=== PATIENT | female | born 1975 | race Caucasian/White ===

== ENCOUNTER → 2017-03-18 | Outpatient (CLI) | payer OTHER ==
[~2017-03-18] MED LIST: CITA40TA4 PO; CYAN1DRO; ERGO1CAP35 PO; LORA-741 PO; MULT-506 PO; MULTI VIT PO
--- NOTE | 2017-03-22 08:00 | MAMMOGRAPHY REPORT ---
BILATERAL DIGITAL SCREENING MAMMOGRAM TOMOSYNTHESIS WITH CAD: 03/18/2017 CLINICAL HISTORY: Routine screening. Patient has no complaints. TECHNIQUE: Bilateral breast tomosynthesis in addition to standard 2D mammography was performed. Curre nt study was also evaluated with a Computer Aided Detection (CAD) system. COMPARISON: Comparison is made to exams dated: 06/07/2014 mammogram, 12/12/2013 localization, 4 stereotactic biopsy, 11/14/2013 mammogram, 10/31/2013 breast MRI, and 10/19/2013 mammogram - [facility]. BREAST COMPOSITION: There are scattered areas of fibroglandular density in both breasts. FINDINGS: There are nodular asymmetries in the far posterior left breast, along the posterior nipple line on the MLO view that are new comparing to prior outside mammograms. Additional spot compressio n. This is views and possibly ultrasound are recommended. There is evidence of prior surgery and prior biopsy in the right breast. No other suspicious mass, a rchitectural distortion or cluster of microcalcifications is seen. IMPRESSION: ACR BI-RADS CATEGORY 0: INCOMPLETE EVALUATION: NEED ADDITIONAL IMAGING EVALUATION The nodular asymmetries in the posterior left breast need additional evaluation. The patient will be called to schedule an appointment. Approximately 10% of breast cancers are not detected with mammography. A negative mammographic report should not delay biopsy if a clinically suggestive mass is present. July Duffy M.D. ay/:03/19/2017 16:01:31 Online Editor: Margaret COTTER(Loi)([place]), [facility] letter sent: Addl Imaging 0 BI-RADS Code: ACR BI-RADS Category 0: Incomplete Evaluation: Need Additional Imaging Evaluation
== END | disposition home or self-care (01) ==
LOC: C.MAMM 15:11
PROVIDERS: ATTEND Physician Assistant
DX: Z12.31 Encounter for screening mammogram for malignant neoplasm of breast (principal); N64.89 Other specified disorders of breast

== ENCOUNTER → 2017-03-29 | Outpatient (CLI) | payer OTHER ==
--- NOTE | 2017-03-29 14:05 | MAMMOGRAPHY REPORT ---
UNILATERAL LEFT DIGITAL DIAGNOSTIC MAMMOGRAM TOMOSYNTHESIS AND TARGETED LEFT ULTRASOUND: 03/29/2017 CLINICAL HISTORY: 42-year-old woman with a history of prior benign right breast surgery and biopsy wa s called back from screening mammography for nodular asymmetries in the posterior left breast, best s een on the MLO view. TECHNIQUE: Spot compression left CC and MLO 2-D and tomosynthesis images were obtained. COMPARISON: Comparison is made to exams dated: 03/18/2017 mammogram - [facility], 1 mammogram, 12/12/2013 localization, 11/14/2013 stereotactic biopsy, 11/14/2013 mammogram, and breast MRI - [facility]. BREAST COMPOSITION: There are scattered areas of fibroglandular density in the left breast. FINDINGS: The additional supplemental spot compression 2-D and tomosynthesis views of the left breast demonstrate effacement of the nodular asymmetries in the far posterior left breast, along the cam maker ior nipple line on the spot compression MLO view. No definite corresponding abnormality is seen on t he spot compression CC views in both the lateral and medial breast. On the tomosynthesis images, the re is no evidence of a persistent mass or focal area of architectural distortion. Further evaluation with ultrasound was performed. Targeted ultrasound was performed throughout the left breast 1:00 through 4:00, retroareolar and 7:00 through 10:00 axes. Normal fibroglandular tissue is seen without a discrete solid or cystic mass. A morphologically normal lymph node is seen in the 1:00 axis approximately 10 cm from the nipple, cor relating with a stable mammographic mass. IMPRESSION: ACR-BI-RADS CATEGORY 3: PROBABLY BENIGN, TARGETED ULTRASOUND ACR-BI-RADS CATEGORY 3: PRO BABLY BENIGN The nodular asymmetries in the posterior left breast on the MLO view effaces with additional suppleme ntal mammographic views and tomosynthesis images, and no suspicious sonographic correlate was seen. However, given the conspicuous nature on the screening mammogram performed 03/18/2017, a short interv al follow-up left diagnostic mammogram and possible repeat ultrasound is recommended to ensure stabil ity in 6 months. These results and recommendations were discussed with the patient at the time of the exam. Approximately 10% of breast cancers are not detected with mammography. A negative mammographic report should not delay biopsy if a clinically suggestive mass is present. July Duffy M.D. ay/:03/29/2017 09:52:30 Associate Professor Of Musicology: Shala Teague, [facility] letter sent: Follow Up Recommended 3 BI-RADS Code: ACR-BI-RADS Category 3: Probably Benign Ultrasound BI-RADS: ACR-BI-RADS Category 3: Pr obably Benign
== END | disposition home or self-care (01) ==
LOC: C.MAMM 09:04
PROVIDERS: ATTEND Physician Assistant
DX: N64.89 Other specified disorders of breast (principal)